=== PATIENT | female | born 1935 | race Two or more races ===

== ENCOUNTER 2020-07-01 16:46 | Inpatient (IN) | payer OTHER ==
[~2020-07-01] VITALS: Ht 154.9 cm; Wt 68.0 kg
[2020-07-01] MEDS ORDERED: PANTOPRAZOLE 40 MG VIAL IV ONE (17:30)
--- NOTE | 2020-07-01 17:32 | NUR ---
[id number] home c/o generalized body weakness. hemoglobin of 5.9. PT AAOX4, VSS. RR EVEN & UNLABORED. DENIES CP, SOB, DIZZINESS, N/V AT THIS TIME. PT SEEN & EVAL'D BY DR. LE. PLACED ON ARTISTS' BOOKING REPRESENTATIVE, SR. WILL CONT TO MONITOR.
[2020-07-01 17:37] LABS: HEMATOCRIT 22 % (33-45); MEAN CORPUSCULAR HGB CONC 28 g/dl (31.0-36.0); MEAN CORPUSCULAR VOLUME 57 fL (82-100); PLATELET COUNT (AUTO) 391 /CMM (150-450); RED BLOOD CELL COUNT(AUTO) 3.81 MIL/uL (4.0-5.2); WHITE BLOOD COUNT (AUTO) 6.6 K/uL (4.3-11.0)
[2020-07-01] MEDS ORDERED: OLME20TA13 PO (17:43)
[2020-07-01] MEDS ORDERED: PANTOPRAZOLE 40 MG VIAL ONE (17:46)
--- NOTE | 2020-07-01 17:46 | NUR ---
family left contact # [phone]
[2020-07-01 17:47] LABS: CALCIUM, SERUM 8.9 mg/dL (8.5-10.1); CREATININE 1.2 mg/dL (0.6-1.3); POTASSIUM 4.5 mmol/L (3.5-5.1)
--- NOTE | 2020-07-01 17:53 | NUR ---
MEDICATED PER ERMD ORDER, PT NICKOLAS WELL.
[2020-07-01] MEDS ORDERED: CEFTRIAXONE 1 G in IV D5W 50 ML IV ONE (19:00)
[2020-07-01] MEDS ORDERED: AZITHROMYCIN 500 MG in IV D5W 250 ML IV ONE (19:00)
[2020-07-01] MEDS ORDERED: IOHEXOL-300 100 ML VIAL IV ONE (19:17)
[2020-07-01] MEDS ORDERED: IV NS 0.9% 250 ML IV ONE (19:17)
[2020-07-01] MEDS ORDERED: MAG HYDROX/AL HYDROX/SIMETH 30 ML UDC PO PRN (19:30)
[2020-07-01] MEDS ORDERED: ACETAMINOPHEN 325 MG TABLET PO PRN (19:30)
[2020-07-01] MEDS ORDERED: Z GUARD REMEDY 2 OZ OINT TP PRN (19:30)
[2020-07-01] MEDS ORDERED: ONDANSETRON HCL/PF 4 MG/2 ML VIAL IVP PRN (19:30)
[2020-07-01] MEDS ORDERED: MAGNESIUM HYDROXIDE 30 ML UDC PO PRN (19:30)
[2020-07-01] MEDS ORDERED: ZOLPIDEM TARTRATE 5 MG TABLET PO PRN (19:30)
--- NOTE | 2020-07-01 19:49 | NUR ---
PER LAB; PRBC READY
--- NOTE | 2020-07-01 20:14 | NUR ---
COVID SWAB SAMPLE COLLECTED AND SENT TO THE LAB.
[2020-07-01 20:18] LABS: EOSINOPHILS % (MANUAL) 1 % (0-4); LYMPHOCYTES % (MANUAL) 16 % (16-48); MONOCYTES % (MANUAL) 1 % (0-11.0); NEUTROPHILS % (MANUAL) 82 (42-76)
--- NOTE | 2020-07-01 21:30 | NUR ---
STARTED INFUSION OF 1 PACK OF RBC, PT NICKOLAS WELL. WILL CONT TO MONITOR FOR ANY SIDE EFFECTS OR ANY ALLERGIC RXN.
[2020-07-02] VITALS (12 sets, daily range): BP systolic 120–172; BP diastolic 57–105
--- NOTE | 2020-07-02 00:40 | NUR ---
REPORT GIVEN TO ED RN FOR HERNANDEZ.
--- NOTE | 2020-07-02 04:09 | NUR ---
RN notes Admitted an 84 year old female from ER via stretcher with slight shortness of breath. Respiration shallow and fast. Noted with non productive cough and slight elevated temperature of 99.3, complaining of severe wealmess. Alert and oriented x 4, verbally communicates needs. Noted to be very anxious and restless and very worried about her condition. Constant visual monitoring done. Started blood transfusion, no adverse effect noted. Endorsed to next shift for continuation of the blood transfusion and care. Vital signs WNL. Kept clean and dry.
[2020-07-02] MEDS: HYDROCODONE/APAP 5/325MG TABLET PO PRN (04:38)
--- NOTE | 2020-07-02 07:33 | NUR ---
PT IN BED, EYES OPEN , ALERT AND ORIENTED X 2. PT CURRENTLY ON 3L NC O2 SAT 95%. BLOOD TRANSFUSION STARTED PREVIOUS SHIFT STILL TRANSFUSING, NO ADVERSE REACTION. NO RESPIRATORY DISTRESS OR SOB AT THIS TIME. NO COUGH AT THIS TIME. BED IN LOCKED LOWEST POSITION, CALL LIGHT WITHIN REACH, ALL SAFETY MEASURES IN PLACE. WILL CONTINUE TO MONITOR CLOSELY.
--- NOTE | 2020-07-02 08:55 | NUR ---
1 UNIT PRBC TRANSFUSION COMPLETE
[2020-07-02 10:17] LABS: BASOPHILS # (AUTO) 0.1 /CMM (0.0-0.2); BASOPHILS % (AUTO) 0.5 % (0.0-2.0); EOSINOPHILS % (AUTO) 0.2 % (0.0-6.0); HEMATOCRIT 33 % (33-45); HEMOGLOBIN 9.9 g/dL (11.5-14.8); LYMPHOCYTES # (AUTO) 1.2 /CMM (0.8-4.8); LYMPHOCYTES % (AUTO) 9.3 % (20.0-44.0); MEAN CORPUSCULAR HGB CONC 30 g/dl (31.0-36.0); MEAN CORPUSCULAR VOLUME 66 fL (82-100); MONOCYTES # (AUTO) 0.7 /CMM (0.1-1.30); MONOCYTES % (AUTO) 5.8 % (2.0-12.0); NEUTROPHILS # (AUTO) 10.4 /CMM (1.8-8.9); NEUTROPHILS % (AUTO) 84.2 % (43.0-81.0); PLATELET COUNT (AUTO) 317 /CMM (150-450); RED BLOOD CELL COUNT(AUTO) 4.98 MIL/uL (4.0-5.2); WHITE BLOOD COUNT (AUTO) 12.4 K/uL (4.3-11.0)
[2020-07-02] MEDS: PANTOPRAZOLE 40 MG VIAL IV SCH (10:18)
[2020-07-02] MEDS: FUROSEMIDE 40 MG/4 ML VIAL IV SCH ×3 (10:18→18:27)
[2020-07-02 10:26] LABS: CALCIUM, SERUM 8.9 mg/dL (8.5-10.1); CREATININE 1.3 mg/dL (0.6-1.3); POTASSIUM 4.8 mmol/L (3.5-5.1)
[2020-07-02 10:32] LABS: ALBUMIN 3.4 g/dL (3.4-5.0); MAGNESIUM 2.2 mg/dL (1.8-2.4); PHOSPHORUS 4.3 mg/dL (2.5-4.9); TOTAL PROTEIN, SERUM 6.5 g/dL (6.4-8.2)
[2020-07-02 10:42] LABS: THYROID STIMULATING HORMONE 0.435 uIU/mL (0.358-3.74)
--- NOTE | 2020-07-02 12:00 | NUR ---
1ST DOSE LASIX GIVEN: 155/79, HR 83
--- NOTE | 2020-07-02 13:59 | NUR ---
2ND DOSE OF LASIX GIVEN, BP 138/58, HR 100
--- NOTE | 2020-07-02 15:00 | NUR ---
A-FIB 100-130S SHOWN ON MONITOR, MD JONES MADE AWARE. METOPROLOL ORDERED
[2020-07-02] MEDS ORDERED: METOPROLOL TARTRATE 25 MG TABLET PO SCH (15:30)
--- NOTE | 2020-07-02 17:00 | NUR ---
PT TRANSFERRED TO [facility]
--- NOTE | 2020-07-02 19:40 | NUR ---
RN NOTE RECEIVED PT AWAKE AND ALERT/ORIENTED X 2 WITH PERIODS OF FORGETFULNESS. PT IN BED IN SEMI SUTTON'S POSITION. PT ON 3L OF O2 VIA NC AND TOLERATING WELL. RESPIRATIONS EVEN AND UNLABORED. DENIES PAIN OR DISCOMFORT. PT ASSISTED TO BEDSIDE COMMODE. CURRENTLY SR O THE RETORT ENGINEER WITH OCCASIONAL PVCS. IV LINES FLUSHED AND PATENT WITHOUT COMPLICATIONS NOTED AT SITES. BLE EDEMA NOTED. KEPT ELEVATED. REORIENTATION PROVIDED PRN, PLAN OF CARE DISCUSSED, CALL LIGHT WITHIN REACH, SAFETY MEASURES IN PLACE, BED ALARM ON, BED LOCKED AND IN LOWEST POSITION, WILL MONITOR PATIENT,
--- NOTE | 2020-07-02 19:43 | NUR ---
PT IN BED, EYES OPEN ALERT AND ORIENTED X 2-3. PT ON 3L O2 SATURATION 94-100%. PT ON 4 L THIS SHIFT, AND DISPLAYS NO SOB ON RA. NO RESPIRATORY DISTRESS OR SOB. PT STATES THAT LASIX HAS IMPROVED HER BREATHING THROUGHOUT SHIFT. PT IV R/L HAND #20G ACCESS REMAINS INTACT, SALINE LOCKED NO SIGNS OF INFECTION OR INFILTRATION. PT NOW ON REGULAR DIET, ADVANCED FROM NPO STATUS. PT IN BED LOCKED LOWEST POSITION. CALL LIGHT WITHIN REACH. ALL SAFETY MEASURES IN PLACE. REPORT GIVEN TO CONRAD FOR HERNANDEZ
[2020-07-03] VITALS: BP 133/55
[2020-07-03 04:00] VITALS: BP 123/46
[2020-07-03 06:17] LABS: BASOPHILS # (AUTO) 0.1 /CMM (0.0-0.2); BASOPHILS % (AUTO) 0.9 % (0.0-2.0); EOSINOPHILS % (AUTO) 0.7 % (0.0-6.0); HEMATOCRIT 34 % (33-45); HEMOGLOBIN 9.9 g/dL (11.5-14.8); LYMPHOCYTES # (AUTO) 1.5 /CMM (0.8-4.8); LYMPHOCYTES % (AUTO) 15.7 % (20.0-44.0); MEAN CORPUSCULAR HGB CONC 30 g/dl (31.0-36.0); MEAN CORPUSCULAR VOLUME 68 fL (82-100); MONOCYTES # (AUTO) 0.9 /CMM (0.1-1.30); MONOCYTES % (AUTO) 9.7 % (2.0-12.0); NEUTROPHILS # (AUTO) 6.8 /CMM (1.8-8.9); PLATELET COUNT (AUTO) 299 /CMM (150-450); RED BLOOD CELL COUNT(AUTO) 4.93 MIL/uL (4.0-5.2); WHITE BLOOD COUNT (AUTO) 9.3 K/uL (4.3-11.0)
[2020-07-03 06:39] LABS: ALANINE AMINOTRANSFERASE 25 U/L (12-78); ALBUMIN 3.2 g/dL (3.4-5.0); ALKALINE PHOSPHATASE 69 U/L (46-116); ASPARTATE AMINOTRANSFERASE 25 U/L (15-37); BILIRUBIN,TOTAL 0.6 mg/dL (0.2-1.0); CALCIUM, SERUM 8.8 mg/dL (8.5-10.1); CARBON DIOXIDE 24 mmol/L (21-32); CHLORIDE 107 mmol/L (98-107); CREATININE 1.5 mg/dL (0.6-1.3); GLUCOSE 126 mg/dL (74-106); MAGNESIUM 2.2 mg/dL (1.8-2.4); PHOSPHORUS 4.3 mg/dL (2.5-4.9); POTASSIUM 4.2 mmol/L (3.5-5.1); SODIUM SERUM 140 mmol/L (136-145); TOTAL PROTEIN, SERUM 6.2 g/dL (6.4-8.2); UREA NITROGEN, BLOOD 32 mg/dL (7-18)
--- NOTE | 2020-07-03 06:48 | NUR ---
RN NOTE CLARIFICATION OF ORDER: REGULAR DIET.
--- NOTE | 2020-07-03 06:58 | NUR ---
RN NOTE NO ACUTE CHANGES OBSERVED OVERNIGHT. PT AWAKE AND ALERT/ORIENTED X 3 IN BED WITH PERIODS OF FORGETFULNESS. REORIENTATION PROVED PRN . PT REFUSING O2 AT THIS TIME. RESPIRATIONS EVEN AND UNLABORED. ABLE TO USE BEDSIDE COMMODE WITH STANDBY ASSIST. IV LINES FLUSHED AND PATENT WITHOUT COMPLICATIONS NOTED AT SITES. STILL NEED TO COLLECT STOOL FOR OB. PT AWARE. ALL NEEDS MET AND ATTENDED TO, CALL LIGHT WITHIN REACH, SAFETY MEASURES IN PLACE, TO COMPLETE MED RECON. WILL ENDORSE TO MORNING RN FOR FOLLOW UP
[2020-07-03 08:00] VITALS: BP 98/44
--- NOTE | 2020-07-03 08:00 | NUR ---
RN OPENING NOTE: RECEIVED PATIENT IN BED THIS MORNING. PATIENT IS AAOX3 WITH EPISODES OF CONFUSION. SR IN THE 70S WITH PVCS NOTED ON THE TELE MONITOR. SATING WELL ON O2 3L/MIN VIA NC. NO SIGNS OF ACUTE DISTRESS NOTED AT THIS TIME. SKIN INTACT. PATIENT IS NPO AT THIS TIME D/T CT SCAN. #20 L/R HAND, C/D/I, FLUSHES WELL, NO SIGS OF COMPLICATIONS NOTED. SAFETY MEASURES IMPLEMENTED, BED IN LOWEST POSITION, LOCKED, SIDE RAILS UP, CALL LIGHT WITHIN REACH. WILL CONTINUE TO MONITOR PATIENT FOR CHANGES.
[2020-07-03] MEDS: PANTOPRAZOLE 40 MG VIAL IV SCH (08:48)
[2020-07-03] MEDS ORDERED: IOHEXOL-300 100 ML VIAL IV ONE (08:54)
[2020-07-03] MEDS ORDERED: IV NS 0.9% 250 ML IV ONE (08:55)
[2020-07-03] MEDS ORDERED: CT SWABBABLE VALVE TRANS SET 1 EA INFUS.SET MC ONE (08:55)
[2020-07-03] MEDS: VALSARTAN 80 MG TABLET PO SCH (11:01)
[2020-07-03] MEDS: METOPROLOL TARTRATE 25 MG TABLET PO SCH ×2 (11:01→21:00)
--- NOTE | 2020-07-03 11:11 | NUR ---
PATIENT BACK FROM CT, DIET RESUMED PER DR JONES
[2020-07-03] MEDS: HYDROCODONE/APAP 5/325MG TABLET PO PRN (13:06)
--- NOTE | 2020-07-03 13:35 | NUR ---
PATIENT REFUSED BIOPSY FOR 07/04/2020. EDUCATED THE IMPORTANCE OF A BIOPSY BUT PATIENT CONTINUES TO REFUSE. STATES THAT SHE WANTS TO GET A SECOND OPINION AND WILL THINK ABOUT IT. INFORMED DR JONES OF PATIENT'S WISHES.
--- NOTE | 2020-07-03 13:54 | NUR ---
GAVE DAUGHTER, CALLUM SUTTON
[2020-07-03 16:00] VITALS: BP 98/69
--- NOTE | 2020-07-03 18:19 | NUR ---
BOTH PATIENT'S IVS BECAME INFILTRATED EARLIER TODAY. ONE INFILTRATION ON RIGHT ARM WAS POST CONTRAST. PATIENT'S RIGHT ARM IS NOW SWOLLEN. CAP REFILL <3 SECONDS. PATIENT ABLE TO MOVE FINGERS AND ARM. SENSATION STILL THERE, NO C/O TINGLING AT THIS TIME. WILL CONTINUE TO MONITOR PATIENT.
--- NOTE | 2020-07-03 18:58 | NUR ---
RN CLOSING NOTE: PATIENT REMAINS IN BED. NO SIGNS OF ACUTE DISTRESS NOTED AT THIS TIME. WILL ENDORSE TO MONITOR RIGHT ARM INFILTRATION. SAFETY MEASURES IMPLEMENTED, BED IN LOWEST POSITION, LOCKED, SIDE RAILS UP, CALL LIGHT WITHIN REACH. ENDORSED TO IMELDA RUIZ FOR CONTINUITY OF CARE.
--- NOTE | 2020-07-03 19:15 | NUR ---
RN OPENING NOTE RECEIVED PATIENT IN BED ALERT ORIENTED X3 VERBALLY RESPONSIVE ON 3L OXYGEN VIA NASAL CANNULA,O2:95% NO SOB NOT ACUTE DISTRESS NOTED RIGHT HAND SWELLING ELEVATED NO IV ACCESS,AMBULATORY WITH ASSIST CONTINENT TO BOWEL/BLADDER,KEEP BED IN LOW POSITION,AND LOCKED,CALL LIGHT WITHIN REACH,SAFETY MEASURE IMPLEMENT,CONTINUE TO MONITOR.
--- NOTE | 2020-07-03 19:16 | NUR ---
RN NOTE APPLIED ICE PACK ON RIGHT HAND FOR SWELLING CONTINUE TO MONITOR.
[2020-07-03 20:00] VITALS: BP 103/58
--- NOTE | 2020-07-03 21:25 | NUR ---
RN NOTE LOPRESSOR 25MG NOT GIVEN DUE TO SBP 102 CONTINUE TO MONITOR.
--- NOTE | 2020-07-03 22:34 | NUR ---
RN CLOSING NOTE PATIENT REMAINS IN STABLE CONDITION ,NO SOB NOT ACUTE DISTRESS NOTED,ENDORSED TO RADHA SEGURA FOR CONTINUATION OF CARE.
--- NOTE | 2020-07-03 22:36 | NUR ---
RN NOTES RECEIVED REPORT FROM SARA SEGURA. PATIENT IN BED SLEEPING. NO SOB OR ANY S/S OF DISTRESS. CALL LIGHT WITHIN REACH. WILL CONTINUE TO MONITOR.
[2020-07-04 04:00] VITALS: BP 129/45
[2020-07-04 06:08] LABS: CALCIUM, SERUM 8.7 mg/dL (8.5-10.1); CARBON DIOXIDE 26 mmol/L (21-32); CHLORIDE 105 mmol/L (98-107); CREATININE 1.5 mg/dL (0.6-1.3); GLUCOSE 131 mg/dL (74-106); MAGNESIUM 2.1 mg/dL (1.8-2.4); PHOSPHORUS 3.8 mg/dL (2.5-4.9); SODIUM SERUM 138 mmol/L (136-145); UREA NITROGEN, BLOOD 41 mg/dL (7-18)
[2020-07-04 06:11] LABS: BASOPHILS # (AUTO) 0.1 /CMM (0.0-0.2); BASOPHILS % (AUTO) 0.9 % (0.0-2.0); EOSINOPHILS % (AUTO) 3.3 % (0.0-6.0); HEMATOCRIT 32 % (33-45); HEMOGLOBIN 9.6 g/dL (11.5-14.8); LYMPHOCYTES # (AUTO) 1.8 /CMM (0.8-4.8); LYMPHOCYTES % (AUTO) 16.4 % (20.0-44.0); MEAN CORPUSCULAR HGB CONC 30 g/dl (31.0-36.0); MEAN CORPUSCULAR VOLUME 66 fL (82-100); MONOCYTES % (AUTO) 9.6 % (2.0-12.0); NEUTROPHILS # (AUTO) 7.5 /CMM (1.8-8.9); NEUTROPHILS % (AUTO) 69.8 % (43.0-81.0); PLATELET COUNT (AUTO) 280 /CMM (150-450); RED BLOOD CELL COUNT(AUTO) 4.81 MIL/uL (4.0-5.2); WHITE BLOOD COUNT (AUTO) 10.8 K/uL (4.3-11.0)
--- NOTE | 2020-07-04 06:44 | NUR ---
RN CLOSING NOTE, PATIENT IN BED ASLEEP AT THIS TIME, BUT AROUSES TO VERBAL STIMULI, BREATHING EVEN AND UNLABORED, AT 2LPM VIA NC WITH OPTIMAL O2 SAT LEVEL, NO SOB/SIGNS OF ACUTE DISTRESS NOTED THROUGHOUT THE NIGHT, NO IV ACCESS, RIGHT ARM ELEVATED TO DECREASE SWELLING, NO SIGNIFICANT CHANGE IN CONDITION, THROUGHOUT THE NIGHT, BED IN LOWEST POSITION, LOCKED SIDE RAILS UP, CALL LIGHT WITHIN REACH, WILL ENDORSED TO ONCOMING NURSE FOR CONTINUITY OF CARE
[2020-07-04] MEDS ORDERED: PANTOPRAZOLE 40 MG TABLET.DR PO SCH (07:30)
--- NOTE | 2020-07-04 07:35 | NUR ---
PER RN PATIENT IS REFUSING THE PROCEDURE AT THIS MOMENT, ORDERING MD IS AWARE
--- NOTE | 2020-07-04 08:00 | NUR ---
RN OPENING NOTE RECEIVED PATIENT IN BED ALERT ORIENTED X3 VERBALLY RESPONSIVE AND FORGETFUL SOMETIMES .ON 3L OXYGEN VIA NASAL CANNULA,O2:95% NO SOB NOT ACUTE DISTRESS NOTED. RIGHT HAND SWELLING ELEVATED NO IV ACCESS,AMBULATORY WITH ASSIST CONTINENT TO BOWEL/BLADDER, SAFETY MESSUREMENTS ARE IMPLEMENTED PER HOSPITAL POLICY. KEEP BED IS IN LOWEST POSITION,AND LOCKED,CALL LIGHT WITHIN REACH. WILL CONTINUE TO MONITOR.
[2020-07-04] MEDS: METOPROLOL TARTRATE 25 MG TABLET PO SCH (09:06)
[2020-07-04] MEDS: VALSARTAN 80 MG TABLET PO SCH (09:06)
--- NOTE | 2020-07-04 10:15 | NUR ---
RN NOTES PT IS COMPLAINING OF ITCHINESS INFORMED DR JONES
--- NOTE | 2020-07-04 10:21 | NUR ---
RN NOTES DR ORDERED BANADRYL 25 MG TABLET
[2020-07-04] MEDS ORDERED: diphenhydrAMINE HCL 25 MG CAPSULE PO PRN (10:30)
--- NOTE | 2020-07-04 10:49 | NUR ---
RN NOTES GOING TO ADMINISTER THE BENADRYL
--- NOTE | 2020-07-04 11:30 | NUR ---
RN NOTES PT IS SAYING FEELING LESS ITCHINESS
[2020-07-04 12:00] VITALS: BP 128/74
[2020-07-04] MEDS ORDERED: METO25TA20 PO (12:55)
--- NOTE | 2020-07-04 13:06 | NUR ---
RN NOTES NOTED DC ORDER
--- NOTE | 2020-07-04 16:00 | NUR ---
RN NOTES PT IS IN STABLE CONDITION TO DC. PT VS WNL. YANDEL AND GRANDSON PICKED UP THE PATIENT TO TAKE HER HOME. GAVE HER DR SARAH MENEZES DC INSTRUCTION AND WHEELED HER DOWN AND PUT HER IN THE CAR
== END 2020-07-04 15:50 | disposition home or self-care (01) | DRG 377 ==
LOC: ER 17:49 → ICU 22:33 → TELE1 07-02 17:10 → MEDSG1 07-03 09:10
PROVIDERS: ADMIT Student in an Organized Health Care Education/Training Program; ATTEND Student in an Organized Health Care Education/Training Program
PROC: 30233N1 Transfusion of Nonautologous Red Blood Cells into Peripheral Vein, Percutaneous Approach (ICD-10-PCS; principal; 2020-07-01)
DX: K92.2 Gastrointestinal hemorrhage, unspecified (principal); I21.A1 Myocardial infarction type 2; N17.0 Acute kidney failure with tubular necrosis; I13.0 Hypertensive heart and chronic kidney disease with heart failure and stage 1 through stage 4 chronic kidney disease, or unspecified chronic kidney disease; I31.3 Pericardial effusion (noninflammatory); D72.829 Elevated white blood cell count, unspecified; I50.9 Heart failure, unspecified; K44.9 Diaphragmatic hernia without obstruction or gangrene; D50.9 Iron deficiency anemia, unspecified; I25.10 Atherosclerotic heart disease of native coronary artery without angina pectoris; N18.9 Chronic kidney disease, unspecified; M19.90 Unspecified osteoarthritis, unspecified site; R51.9 Headache, unspecified; Z79.1 Long term (current) use of non-steroidal anti-inflammatories (NSAID); Z87.891 Personal history of nicotine dependence; E04.9 Nontoxic goiter, unspecified; T39.395A Adverse effect of other nonsteroidal anti-inflammatory drugs [NSAID], initial encounter; Y92.009 Unspecified place in unspecified non-institutional (private) residence as the place of occurrence of the external cause; I70.0 Atherosclerosis of aorta; I27.20 Pulmonary hypertension, unspecified
CPT/HCPCS: 36415; 71045-TC; 71260-TC; 76536-TC; 80048-TC; 80053-TC; 80061-TC; 82378; 82728-TC; 83540-TC; 83735-TC; 84100-TC; 84439-TC; 84443-TC; 84484-TC; 85025-TC; 85610-TC; 85652-TC; 85730-TC; 86800; 86850-TC; 87040-TC; 87081-TC; 93307-TC; 93970-TC; 93971-TC; C9113; G0378; J0696; J1940; J2405; J7050; J7060; P9016-BL; Q0163; Q9967; U0003

== ENCOUNTER 2021-06-30 17:54 | Inpatient (IN) | payer BC, OTHER ==
[~2021-06-30] VITALS: Ht 160 cm; Wt 67.1 kg
[~2021-06-30 17:54] MED LIST: METO25TA20 PO; OLME20TA13 PO
[2021-06-30 19:06] LABS: BASOPHILS % (AUTO) 0.3 % (0.0-2.0); EOSINOPHILS % (AUTO) 0.4 % (0.0-6.0); HEMATOCRIT 36 % (33-45); HEMOGLOBIN 10.5 g/dL (11.5-14.8); LYMPHOCYTES # (AUTO) 0.9 K/uL (0.8-4.8); LYMPHOCYTES % (AUTO) 8.4 % (20.0-44.0); MEAN CORPUSCULAR HGB CONC 30 g/dl (31.0-36.0); MEAN CORPUSCULAR VOLUME 74 fL (82-100); MONOCYTES # (AUTO) 0.5 K/uL (0.1-1.30); MONOCYTES % (AUTO) 4.3 % (2.0-12.0); NEUTROPHILS # (AUTO) 9.6 K/uL (1.8-8.9); NEUTROPHILS % (AUTO) 86.6 % (43.0-81.0); PLATELET COUNT (AUTO) 316 K/uL (150-450); RED BLOOD CELL COUNT(AUTO) 4.79 MIL/uL (4.0-5.2); WHITE BLOOD COUNT (AUTO) 11.1 K/uL (4.3-11.0)
[2021-06-30 19:57] LABS: CALCIUM, SERUM 9.1 mg/dL (8.5-10.1); POTASSIUM 4.5 mmol/L (3.5-5.1)
--- NOTE | 2021-06-30 20:19 | NUR ---
BIBRA C/O BILATERAL LOWER EXTREMITY PAIN RELATED TO RA WELL ACUTE WEAKNESS. PER PATIENT SHE HAS CHRONIC PAIN THAT WORSTENED AND MADE HER INABL;E TO WALK WHILE AT HOME, LEAVING HER ON THE GROUND FOR 8 HOURS. PT VITALS STABLE AND IS ON THE MONITOR BREATHING EVEN AND UNLABORED.
[2021-06-30] MEDS ORDERED: CEPHALEXIN MONOHYDRATE 500 MG CAPSULE PO ONE ×2 (20:59→21:00)
[2021-06-30] MEDS ORDERED: ASPIRIN 81 MG TAB.CHEW ONE (20:59)
[2021-06-30] MEDS ORDERED: ASPIRIN 81 MG TAB.CHEW PO ONE (21:00)
[2021-06-30 21:01] LABS: LYMPHOCYTES % (MANUAL) 8 % (16-48); MONOCYTES % (MANUAL) 2 % (0-11.0); NEUTROPHILS % (MANUAL) 90 (42-76)
[2021-06-30 21:16] LABS: BILIRUBIN,URINE NEGATIVE (NEGATIVE); COLOR,URINE YELLOW (YELLOW); LEUKOCYTE ESTERASE ,URINE NEGATIVE (NEGATIVE); NITRITE, URINE NEGATIVE (NEGATIVE); PH,URINE 6.5 (5.0-8.0); PROTEIN,URINE 30 mg/dl (NEGATIVE); UGLUCOSE NEGATIVE (NEGATIVE); UROBILINOGEN,URINE 0.2 EU/dL (0.2)
[2021-06-30 21:25] LABS: BACTERIA,URINE None seen /HPF (None Seen); MUCUS,URINE Few /LPF (None Seen); SQUAMOUS EPITHELIAL CELL,UR 0-2 /HPF (None Seen); WBC,URINE 0-2 /HPF (0-3)
[2021-07-01] VITALS: BP 130/61
--- NOTE | 2021-07-01 00:06 | NUR ---
REPORT GIVEN TO IGNACIO
--- NOTE | 2021-07-01 00:09 | NUR ---
RN NOTES: RECEIVED ENDORSEMENT FROM RUTH/RN/ER AT 0000.
--- NOTE | 2021-07-01 00:16 | NUR ---
PT TRANSPORTED TO [facility] ON MONITOR PER ACLS PROTOCOL WITHOUT INCIDENT. ALL V/S STABLE AT TRANSPORT.
[2021-07-01] MEDS ORDERED: Z GUARD REMEDY 2 OZ OINT TP PRN (00:30)
[2021-07-01] MEDS ORDERED: ZOLPIDEM TARTRATE 5 MG TABLET PO PRN (00:30)
[2021-07-01] MEDS ORDERED: MAG HYDROX/AL HYDROX/SIMETH 30 ML UDC PO PRN (00:30)
[2021-07-01] MEDS ORDERED: ONDANSETRON HCL/PF 4 MG/2 ML VIAL IVP PRN (00:30)
[2021-07-01] MEDS ORDERED: MAGNESIUM HYDROXIDE 30 ML UDC PO PRN (00:30)
[2021-07-01] MEDS ORDERED: ACETAMINOPHEN 325 MG TABLET PO PRN (00:30)
[2021-07-01 01:00] VITALS: BP 130/61
--- NOTE | 2021-07-01 02:00 | NUR ---
RN NOTES: NEW ADMISSION FROM ER, 85 Y.O.,FEMALE, A/OX3-4, BROUGHT IN BY AMBULANCE FROM HOME, PER ENDORSEMENT PATIENT DENIED OF HAVING FALL, PER DAUGHTER SHE HAD A FALL, SHE WAS FOUND ON THE FLOOR. SINCE MORNING TIME SHE HAS CHRONIC BILATERAL KNEE PAIN SECONDARY TO RA, UNABLE TO GET UP,DX:NSTEMI, ACUTE WEAKNESS AND ACUTE CORONARY SYNDROME, ALSO KNOWN CASE HTN,CHF, CORONARY ARTERY DISEASE WITH INCREASE TROPONIN 0.358 SHE CALLED HER CAREGIVER AND AGREE TO GO TO HOSPITAL. -IN ER DOPPLER ON BLE DONE, IV CANNULA INSERTED ON THE LH G#22, SHE RECEIVED KEFLEX 500 MG,ASA 162MG, NO IVF, MRSA SWAB DONE,COVID VACCINE NOT YET TAKEN DUE TO HER CONDITION(SHE HAS REDNESS/SPOT ON BUE) HER PRIMARY DOCTOR DID NOT ALLOW HER TO GET ANY VACCINE. OFFERED FLU AND PNA VACCINE SHE SAID "NO NOT NOW UTIL I AM CLEARED BY MY PRIMARY DOCTOR".MED RECON NOT YET DONE. PER PATIENT THEY WILL GIVE THE LIST OF HER MEDICATION LATER IN THE MORNING.
--- NOTE | 2021-07-01 02:05 | NUR ---
RN NOTES: -ON ROOM AIR, NO SOB , NO SOB, ONLY MILD PAIN IN BLE 10/26, PER PATIENT TYLENOL CAN HELP AND SHE TOOK ALREADY FROM HOME. -ORIENTED TO UNIT AND STAFF, FALL,SAFETY AND ASPIRATION PRECAUTION OBSERVED. BODY ASSESSMENT DONE: 1)MULTIPLE SKIN DISCOLORATION /RED RASHES/RED SPOTS ON LEFT UPPER EXTREMITY 2)MULTIPLE SKIN DISCOLORATION ON THE RIGHT UPPER EXTREMITY 3)SKIN DISCOLORATION AND NEEDLE PRICK ON THE LEFT HAND 4)UMBILICAL HERNIA 5)LEFT FOOT BUNION LATERAL ON THE FIRST AND LAST DIGIT WITH BLANCHABLE REDNESS 6)LEFT FOOT OLD WOUND/CLOSED/WITH SCAB AND SKIN PEELING 7) EDEMA ON RIGHT LOWER EXTREMITY (+) LEFT LOWER EXTREMITY (+++) -KEPT BOTH FOOT ELEVATED
[2021-07-01 04:00] VITALS: BP 145/71
--- NOTE | 2021-07-01 05:33 | NUR ---
RN NOTES: ABLE TO SLEEP AND REST, ON CIGARETTE SELLER REMAINS ON SR WITH PAC RATE 80'S. NO CHEST PAIN, SHE HAS PAIN ON BILATERAL KNEES UPON MOVEMENT,NEEDS ATTENDED.
--- NOTE | 2021-07-01 05:34 | NUR ---
RN NOTES: ADDITIONAL NOTE TO 0100-AFTER DOING BODY ASSESSMENT WHILE COTTON PICKER IS CHECKING HER BELONGINGS SHE VERBALIZED "I LOSS MY RED CREDIT CARD,ITS A MASTERCARD", IMMEDIATELY RN CALLED ER AND SPOKE WITH RUTH NOTIFIED AND REQUESTED TO CHECK IF PATIENT LEFT ANYTHING THERE, THEY WILL LET US KNOW IN CASE ANYBODY FOUND A CARD.
--- NOTE | 2021-07-01 06:00 | NUR ---
RN NOTES: --3 HOME MEDS OF PATIENT(PROPANOLOL, VIT D2, BLOOD BUILDER-SUPPLEMENT) SEND TO PHARMACY WITH PATIENTS PERMISSION. Addendum: 07/01/21 at 0603 by BEN BO RN ADDED NOTES: --RETURN SLIP ATTACHED TO PATIENT CHART WITH SERIAL NO: [id number]
--- NOTE | 2021-07-01 06:50 | NUR ---
RN NOTES: ECHO DONE, NO CHEST PAIN, SHE ONLY FEEL PAIN DURING REPOSITIONING AND GETTING UP FROM BED, ON CLOSE WATCH, ENDORSED FOR THE CONTINUITY OF CARE. TO F/U MED RECON. Addendum: 07/01/21 at 0654 by BEN BO RN ADDED NOTES: -NO SHORTENING, NO INTERNAL OR EXTERNAL ROTATION ON BOTH LOWER EXTREMITIES.
--- NOTE | 2021-07-01 07:36 | NUR ---
CHEMISTRY MANAGER OPENING NOTES RECEIVED PATIENT IN BED, ASLEEP. PATIENT ON ROOM AIR; BREATHING EVEN AND UNLABORED, NO SOB NOTED. TELE [id number] WITH A CURRENT READING OF SR 64 BPM. NO S/S OF PAIN SUCH FACIAL GRIMACING, MOANING OR GUARDING NOTED. LEFT HAND IV ACCESS PRESENT AND INTACT; SL. SAFETY PRECAUTIONS IN PLACE; BED IN LOW POSITION AND LOCKED, RAILS UP X2, CALL LIGHT WITHIN REACH. WILL CONTINUE TO MONITOR PATIENT.
[2021-07-01 08:00] VITALS: BP 149/66
[2021-07-01] MEDS: PANTOPRAZOLE 40 MG TABLET.DR PO SCH (08:42)
[2021-07-01] MEDS: ASPIRIN 81 MG TAB.CHEW PO SCH (08:42)
[2021-07-01] MEDS: ENOXAPARIN SODIUM 40 MG/0.4 ML DISP.SYRIN SQ SCH (08:44)
[2021-07-01] MEDS: LOSARTAN POTASSIUM 50 MG TABLET PO SCH (09:00)
[2021-07-01] MEDS: METOPROLOL TARTRATE 25 MG TABLET PO SCH ×2 (09:48→22:05)
[2021-07-01 11:00] LABS: BASOPHILS % (AUTO) 0.5 % (0.0-2.0); EOSINOPHILS % (AUTO) 2.8 % (0.0-6.0); HEMATOCRIT 31 % (33-45); HEMOGLOBIN 9.4 g/dL (11.5-14.8); LYMPHOCYTES # (AUTO) 1.1 K/uL (0.8-4.8); LYMPHOCYTES % (AUTO) 14.1 % (20.0-44.0); MEAN CORPUSCULAR HGB CONC 31 g/dl (31.0-36.0); MEAN CORPUSCULAR VOLUME 72 fL (82-100); MONOCYTES # (AUTO) 0.7 K/uL (0.1-1.30); MONOCYTES % (AUTO) 8.4 % (2.0-12.0); NEUTROPHILS # (AUTO) 5.7 K/uL (1.8-8.9); NEUTROPHILS % (AUTO) 74.2 % (43.0-81.0); PLATELET COUNT (AUTO) 300 K/uL (150-450); RED BLOOD CELL COUNT(AUTO) 4.28 MIL/uL (4.0-5.2); WHITE BLOOD COUNT (AUTO) 7.7 K/uL (4.3-11.0)
[2021-07-01 11:40] LABS: EOSINOPHILS % (MANUAL) 2 % (0-4); LYMPHOCYTES % (MANUAL) 14 % (16-48); MONOCYTES % (MANUAL) 4 % (0-11.0); NEUTROPHILS % (MANUAL) 80 (42-76)
[2021-07-01 12:03] LABS: ALBUMIN 2.7 g/dL (3.4-5.0); BILIRUBIN,TOTAL 0.3 mg/dL (0.2-1.0); CALCIUM, SERUM 8.7 mg/dL (8.5-10.1); CREATININE 1.1 mg/dL (0.6-1.3); PHOSPHORUS 3.6 mg/dL (2.5-4.9); TOTAL PROTEIN, SERUM 5.9 g/dL (6.4-8.2)
[2021-07-01 12:43] LABS: THYROID STIMULATING HORMONE 1.444 uIU/mL (0.358-3.74)
--- NOTE | 2021-07-01 13:11 | NUR ---
PRESIDENT [place] NOTES PATIENT COMPLAINING OF NAUSEA; REQUSTING MEDICATION. PRN ZOFRAN ADMINISTERED. WILL REASSESS.
[2021-07-01 16:00] VITALS: BP 120/77
--- NOTE | 2021-07-01 17:00 | NUR ---
CORPORATE LEGAL MANAGER NOTES PATINT NOTED WITH DECREASED O2 SATURATION 83-86% GOING UP TP 90% THEN DROPPING BACK TO 80S. PER PATIENT SHE IS SLIGHTLY SOB BUT OTHERWISE FEELS OK. O2 SUPPLEMENTATION STARTED AT 2 LPM VIA NASAL CANNULA. PATIENT SATURATING 96-100%
--- NOTE | 2021-07-01 18:49 | NUR ---
MARKETING COMMUNICATIONS ASSISTANT CLOSING NOTES PATIENT JUAN JOSE IN BED, ASLEEP. PATIENT ON OXYGEN THERAPY AT 2 LPM VIA NASAL CANNULA SAT 96-100%; BREATHING EVEN AND UNLABORED, NO SOB NOTED. TELE [id number] WITH A CURRENT READING OF SR 60s WITH PACs. MILD BLE PAIN BUT NO MEDICATION REQUESTED. LEFT HAND IV ACCESS PRESENT AND INTACT; SL. ALL NEEDS ATTENDED DURING THE DAY. SAFETY PRECAUTIONS IN PLACE; BED IN LOW POSITION AND LOCKED, RAILS UP X2, CALL LIGHT WITHIN REACH. WILL ENDORSE TO INDUSTRIAL ENG NURSE FOR HERNANDEZ.
--- NOTE | 2021-07-01 19:30 | NUR ---
SIGN BOARD ERECTOR OPENING NOTES RECEIVED PATIENT IN BED, ASLEEP. PATIENT ON OXYGEN THERAPY AT 2 LPM VIA NASAL CANNULA BREATHING EVEN AND UNLABORED, NO SOB NOTED AT THIS TIME. TELE [id number] WITH A CURRENT READING OF NSR WITH HR =68 . LEFT HAND IV SALINE LOCKED G=22 PRESENT AND INTACT. ALL NEEDS ATTENDED. SAFETY PRECAUTIONS IN PLACE; BED IN LOW POSITION AND LOCKED, RAILS UP X2, CALL LIGHT WITHIN REACH. WILL CONTINUE TO MONITOR PATIENT ACCORDINGLY.
[2021-07-01 20:00] VITALS: BP 137/53
--- NOTE | 2021-07-01 23:30 | NUR ---
RN NOTES Patient accidentally pulled out her IV line but refused to have another one at this time, patient stated "she want to have it in the morning"
[2021-07-02] VITALS: BP 146/66
--- NOTE | 2021-07-02 06:26 | NUR ---
STAFF OCCUPATIONAL THERAPIST CLOSING NOTES PATIENT IN BED, ASLEEP. PATIENT ON OXYGEN THERAPY AT 2 LPM VIA NASAL CANNULA BREATHING EVEN AND UNLABORED, NO SOB NOTED AT THIS TIME. TELE [id number] WITH A CURRENT READING OF NSR WITH HR =68 . ALL NEEDS ATTENDED. SAFETY PRECAUTIONS IN PLACE; BED IN LOW POSITION AND LOCKED, RAILS UP X2, CALL LIGHT WITHIN REACH. WILL ENDORSED PATIENT TO DAY SHIFT NURSE FOR HERNANDEZ.
--- NOTE | 2021-07-02 06:29 | NUR ---
RN NOTES patient still refusing to have an IV access, explained the importance of having IV access but patient still refusing. Patient stated that "to comeback after breakfast," will endorse to incoming nurse
--- NOTE | 2021-07-02 07:30 | NUR ---
MEDICAL EDUCATION MANAGER OPENING NOTES RECEIVED PATIENT ON BED, AWAKE AND A/O X4. ON O2 AT 2LPM VIA NASAL CANNULA TOLERATING WELL. NO SOB NOTED. NOT IN DISTRESS. WITH NO COMPLAINTS OF PAIN OR DISCOMFORT AT THIS TIME. WITH NO IV ACCESS. PATIENT REFUSED FOR ANOTHER IV INSERTION. ENDORSED, IV WAS ACCIDENTALLY PULLED OUT BY PATIENT. SAFETY MEASURES IN PLACE. CALL LIGHT WITHIN REACH. BED ON LOWEST AND LOCKED POSITION, SIDE RAILS UP X2. WILL CONTINUE TO MONITOR.
--- NOTE | 2021-07-02 07:30 | NUR ---
GENERAL CAR SUPERVISOR YARD NOTE ON TELE MONITOR CURRENTLY READING SR AT 65BPM.
[2021-07-02 08:00] VITALS: BP 127/62
[2021-07-02] MEDS: PANTOPRAZOLE 40 MG TABLET.DR PO SCH (08:13)
[2021-07-02] MEDS: ASPIRIN 81 MG TAB.CHEW PO SCH (08:14)
[2021-07-02] MEDS: ENOXAPARIN SODIUM 40 MG/0.4 ML DISP.SYRIN SQ SCH (08:19)
[2021-07-02] MEDS: METOPROLOL TARTRATE 25 MG TABLET PO SCH (08:19)
[2021-07-02] MEDS: LOSARTAN POTASSIUM 50 MG TABLET PO SCH (08:19)
[2021-07-02] MEDS ORDERED: VALSARTAN 80 MG TABLET PO SCH (09:00)
[2021-07-02] MEDS ORDERED: SOD FERRIC GLUC 125 MG in IV NS 0.9% 100 ML IV SCH (14:00)
[2021-07-02 16:00] VITALS: BP 127/64
--- NOTE | 2021-07-02 17:55 | NUR ---
MONITOR TECHFRUIT PICKER NOTES PATIENT SEEN BY DR. MARIO AND ORDERED PATIENT FOR DISCHARGE TO HOME. PATIENT IS ALERT AND ORIENTED X4. DISCHARGE INSTRUCTION AND EDUCATION PROVIDED TO PATIENT AND EXPLAINED MEDICATIONS AND PRESCRIPTIONS. PATIENT VERBALIZED UNDERSTANDING. DISCHARGE FORM AND BELONGINGS LIST FORM SIGNED BY PATIENT. ALL BELONGINGS ARE ACCOUNTED FOR. NAME WRIST BAND REMOVED. PATIENT WAS ACCOMPANIED TO THE LOBBY IN STABLE CONDITION AMBULATORY WITH WALKER. PATIENT WAS PICKED UP BY DAUGHTER AND LEFT VIA PRIVATE CAR. MD AND CHARGE NURSE ARE AWARE OF THE DISCHARGE.
== END 2021-07-02 17:30 | disposition home or self-care (01) | DRG 282 ==
LOC: ER 18:16 → TELE 23:11
PROVIDERS: ADMIT Internal Medicine; ATTEND Internal Medicine
DX: I21.4 Non-ST elevation (NSTEMI) myocardial infarction (principal); D63.8 Anemia in other chronic diseases classified elsewhere; Z20.822 Contact with and (suspected) exposure to COVID-19; R53.1 Weakness; I10 Essential (primary) hypertension; I25.10 Atherosclerotic heart disease of native coronary artery without angina pectoris; M17.0 Bilateral primary osteoarthritis of knee; E04.1 Nontoxic single thyroid nodule; I27.20 Pulmonary hypertension, unspecified; R23.3 Spontaneous ecchymoses
CPT/HCPCS: 36415; 70450-TC; 71045-TC; 76536-TC; 80048-TC; 80053-TC; 80061-TC; 81001; 82728-TC; 82962-TC; 83540-TC; 83605-TC; 83735-TC; 84100-TC; 84439-TC; 84443-TC; 84484-TC; 85025-TC; 85730-TC; 87081-TC; 93307-TC; 93971-TC; 97116-TC; 97530-TC; C9803; G0378; J1650; J2405; J2916; J7030

== ENCOUNTER 2021-11-15 09:01 | Emergency (ER) | payer OTHER ==
[~2021-11-15] VITALS: Ht 152.4 cm; Wt 70.8 kg
--- NOTE | 2021-11-15 09:10 | NUR ---
[id number] home, weak slid off her walker sometime last night unable to get up. C/O GENERALIZED WEAKNESS. AAOX4 NOT IN DISTRESS NOT IN PAIN. MD AT THE BED SIDE.
[2021-11-15] MEDS ORDERED: IV LR 500 ML IV ONE (09:30)
--- NOTE | 2021-11-15 09:45 | NUR ---
BLOOD DRAWN AND SENT TO LAB.
--- NOTE | 2021-11-15 09:50 | NUR ---
X-RAY TECH. AT BED SIDE
[2021-11-15 09:56] LABS: BASOPHILS # (AUTO) 0.1 K/uL (0.0-0.2); BASOPHILS % (AUTO) 0.6 % (0.0-2.0); EOSINOPHILS % (AUTO) 1.8 % (0.0-6.0); HEMATOCRIT 37 % (33-45); HEMOGLOBIN 11.2 g/dL (11.5-14.8); LYMPHOCYTES # (AUTO) 1.2 K/uL (0.8-4.8); MEAN CORPUSCULAR HGB CONC 30 g/dl (31.0-36.0); MEAN CORPUSCULAR VOLUME 66 fL (82-100); MONOCYTES % (AUTO) 10.3 % (2.0-12.0); NEUTROPHILS # (AUTO) 7.6 K/uL (1.8-8.9); NEUTROPHILS % (AUTO) 75.3 % (43.0-81.0); PLATELET COUNT (AUTO) 353 K/uL (150-450); RED BLOOD CELL COUNT(AUTO) 5.56 MIL/uL (4.0-5.2); WHITE BLOOD COUNT (AUTO) 10.1 K/uL (4.3-11.0)
[2021-11-15 11:15] LABS: MAGNESIUM 2.3 mg/dL (1.8-2.4)
[2021-11-15 11:22] LABS: ALANINE AMINOTRANSFERASE 14 U/L (12-78); ALBUMIN 3.1 g/dL (3.4-5.0); ALKALINE PHOSPHATASE 94 U/L (46-116); ASPARTATE AMINOTRANSFERASE 16 U/L (15-37); BILIRUBIN,DIRECT 0.1 mg/dL (0.0-0.2); BILIRUBIN,TOTAL 0.3 mg/dL (0.2-1.0); CALCIUM, SERUM 9.3 mg/dL (8.5-10.1); CARBON DIOXIDE 24 mmol/L (21-32); CHLORIDE 109 mmol/L (98-107); CREATININE 0.9 mg/dL (0.6-1.3); GLUCOSE 119 mg/dL (74-106); POTASSIUM 4.2 mmol/L (3.5-5.1); SODIUM SERUM 144 mmol/L (136-145); TOTAL PROTEIN, SERUM 6.4 g/dL (6.4-8.2); UREA NITROGEN, BLOOD 33 mg/dL (7-18)
--- NOTE | 2021-11-15 11:49 | NUR ---
URINE COLLECTED AND SENT TO LAB
[2021-11-15] MEDS ORDERED: ASPIRIN 325 MG TABLET PO ONE (12:00)
--- NOTE | 2021-11-15 12:55 | NUR ---
COVID SWAB DONE AND SENT TO LAB
[2021-11-15] MEDS ORDERED: PROP20TA19 PO (13:09)
[2021-11-15] MEDS ORDERED: ASPIRIN EC 325 MG TABLET.DR PO ONE (13:11)
[2021-11-15 13:14] LABS: BILIRUBIN,URINE NEGATIVE (NEGATIVE); COLOR,URINE YELLOW (YELLOW); LEUKOCYTE ESTERASE ,URINE NEGATIVE (NEGATIVE); NITRITE, URINE NEGATIVE (NEGATIVE); PROTEIN,URINE NEGATIVE (NEGATIVE); UGLUCOSE NEGATIVE (NEGATIVE); UROBILINOGEN,URINE 0.2 EU/dL (0.2)
[2021-11-15 14:07] LABS: BACTERIA,URINE FEW /HPF (None Seen); SQUAMOUS EPITHELIAL CELL,UR FEW /HPF (None Seen); WBC,URINE 0-2 /HPF (0-3)
--- NOTE | 2021-11-15 15:11 | NUR ---
CALLED DR. BILLS AND FAXED EKG PER ER REQUEST. TEL [phone] FAX [phone]
--- NOTE | 2021-11-15 15:30 | NUR ---
DR. DAILEY SPEAKING WITH DR. MCKEON ABOUT TRANSFER
--- NOTE | 2021-11-15 17:44 | NUR ---
JAMSHID FROM [facility] CALLED [phone] [facility] TO [phone] PT GOING TO [facility].
--- NOTE | 2021-11-15 18:11 | NUR ---
CALL FROM [facility], DR CANELA WANTS SPEAK TO DR HUTCHISON
--- NOTE | 2021-11-15 20:21 | NUR ---
S/W JAMSHID [facility] #[phone] SHE IS ARRANGING [place] AND WILL RETURN CALL ONCE SHE HAS ETA
--- NOTE | 2021-11-15 20:26 | NUR ---
S/W JAMSHID FROM [facility]. PT GOING TO [facility] ROOM 1402-02, FOR REPORT CALL [phone] ETA 11PM [facility]
--- NOTE | 2021-11-15 20:55 | NUR ---
REPORT GIVEN TO NORM GONZALEZ FOR HERNANDEZ
--- NOTE | 2021-11-15 21:45 | NUR ---
PT RESTING COMFORTABLY IN BED, PROVIDED HER WITH JUICE
--- NOTE | 2021-11-16 01:57 | NUR ---
CALLED [facility]. NEW ETA [phone]
--- NOTE | 2021-11-16 06:03 | NUR ---
S/W SEAN C/M [facility] , SHE WILL FOLLOW UP WITH [facility] IN REGARDS TO [facility] MAN TIME
--- NOTE | 2021-11-16 06:50 | NUR ---
S/Claudia ESTRADA , SHE WILL REACH OUT TO OTHER APS COMPANY TO ARRANGE TRANSPORTATION
--- NOTE | 2021-11-16 08:51 | NUR ---
CALLED JAMSHID [facility] #[phone] TO CALL US BACK ABOUT TRANSPORT OR PT STAYING HERE.
--- NOTE | 2021-11-16 09:01 | NUR ---
[facility] ETA CHANGED TO 1000 PER THELMA FROM [facility].
[2021-11-16] MEDS ORDERED: ACETAMINOPHEN 325 MG TABLET PO ONE (09:30)
[2021-11-16] MEDS ORDERED: ACETAMINOPHEN 325 MG TABLET ONE (10:05)
[2021-11-16 10:10] VITALS: BP 153/52
--- NOTE | 2021-11-16 10:15 | NUR ---
PICKED UP IN STABLE CONDITION
== END 2021-11-16 11:08 | disposition short-term general hospital (02) ==
LOC: ER 09:03
DX: R53.1 Weakness (principal); I48.91 Unspecified atrial fibrillation; R77.8 Other specified abnormalities of plasma proteins; M06.9 Rheumatoid arthritis, unspecified; I25.10 Atherosclerotic heart disease of native coronary artery without angina pectoris; Z79.899 Other long term (current) drug therapy; I11.9 Hypertensive heart disease without heart failure
CPT/HCPCS: 36415; 71045; 80048; 80076; 81001; 82550; 83605; 83735; 84484; 85025; 85730; 86850; 87040 ×2; 87081; 87426; 93005; 99285; A6403; C9803; J7120 ×2

== ENCOUNTER 2022-03-14 20:13 | Emergency (ER) | payer OTHER ==
[~2022-03-14] VITALS: Ht 157.5 cm; Wt 63.5 kg
[~2022-03-14 20:13] MED LIST changes: -METO25TA20 PO; -OLME20TA13 PO; +PROP20TA19 PO
--- NOTE | 2022-03-14 20:40 | NUR ---
TO ER BED 11. BIBRA 839 FROM HOME TO R/O SBO PER EMS. +ABD DISTENSTION AND MILD PAIN. LAST BM THIS AM. PT IS ALERT AND ORIENTED. BREATHING IS EVEN AND NONLABORED. CONNECTED TO MONITOR. AWAITING MD BAR
[2022-03-14] MEDS ORDERED: IV NS 0.9% 1,000 ML BAG IV ONE (21:00)
[2022-03-14] MEDS ORDERED: ONDANSETRON HCL/PF 4 MG/2 ML VIAL IVP ONE (21:00)
--- NOTE | 2022-03-14 21:09 | NUR ---
LIFE COACH AT PT'S BEDSIDE
--- NOTE | 2022-03-14 21:20 | NUR ---
IV LINE ESTABLISHED, LHAND 20G
[2022-03-14] MEDS ORDERED: ONDANSETRON HCL/PF 4 MG/2 ML VIAL ONE (21:28)
[2022-03-14] MEDS ORDERED: MORPHINE SULFATE INJ 4 MG/ML DISP.SYRIN ONE (21:29)
[2022-03-14] MEDS ORDERED: MORPHINE SULFATE INJ 2 MG/ML DISP.SYRIN IV ONE (21:30)
[2022-03-14 21:43] LABS: BASOPHILS % (AUTO) 0.6 % (0.0-2.0); EOSINOPHILS % (AUTO) 3.2 % (0.0-6.0); HEMATOCRIT 37 % (33-45); HEMOGLOBIN 11.3 g/dL (11.5-14.8); LYMPHOCYTES # (AUTO) 1.4 K/uL (0.8-4.8); LYMPHOCYTES % (AUTO) 20.6 % (20.0-44.0); MEAN CORPUSCULAR HGB CONC 31 g/dl (31.0-36.0); MEAN CORPUSCULAR VOLUME 71 fL (82-100); MONOCYTES # (AUTO) 0.5 K/uL (0.1-1.30); MONOCYTES % (AUTO) 7.3 % (2.0-12.0); NEUTROPHILS # (AUTO) 4.8 K/uL (1.8-8.9); NEUTROPHILS % (AUTO) 68.3 % (43.0-81.0); PLATELET COUNT (AUTO) 312 K/uL (150-450); RED BLOOD CELL COUNT(AUTO) 5.17 MIL/uL (4.0-5.2)
[2022-03-14] MEDS ORDERED: IV NS 0.9% 250 ML IV ONE (22:02)
[2022-03-14] MEDS ORDERED: IOHEXOL-350 100 ML VIAL IV ONE (22:02)
[2022-03-14 22:06] LABS: CALCIUM, SERUM 10.9 mg/dL (8.5-10.1); CARBON DIOXIDE 27 mmol/L (21-32); CHLORIDE 106 mmol/L (98-107); CREATININE 1.1 mg/dL (0.6-1.3); GLUCOSE 102 mg/dL (74-106); POTASSIUM 4.2 mmol/L (3.5-5.1); SODIUM SERUM 140 mmol/L (136-145); UREA NITROGEN, BLOOD 26 mg/dL (7-18)
[2022-03-14 22:11] LABS: ALANINE AMINOTRANSFERASE 17 U/L (12-78); ALBUMIN 3.3 g/dL (3.4-5.0); ALKALINE PHOSPHATASE 77 U/L (46-116); ASPARTATE AMINOTRANSFERASE 16 U/L (15-37); BILIRUBIN,DIRECT 0.1 mg/dL (0.0-0.2); BILIRUBIN,TOTAL 0.4 mg/dL (0.2-1.0); TOTAL PROTEIN, SERUM 7.1 g/dL (6.4-8.2)
[2022-03-15] VITALS: BP 130/64
--- NOTE | 2022-03-15 00:26 | NUR ---
[facility] CALLED FOR BLS BACK TO HOME PER ALFONSO ETA 60 MIN
--- NOTE | 2022-03-15 01:39 | NUR ---
[facility] ARRIVED FOR TRANSPORTATION, REPORT GIVEN
[2022-03-15 02:28] LABS: BASOPHILS % (MANUAL) 0 % (0.0-2.0); EOSINOPHILS % (MANUAL) 2 % (0-4); LYMPHOCYTES % (MANUAL) 20 % (16-48); MONOCYTES % (MANUAL) 6 % (0-11.0); NEUTROPHILS % (MANUAL) 72 (42-76)
[2022-03-15 04:43] LABS: LIPASE 64 U/L (73-393)
== END 2022-03-15 02:10 | disposition home or self-care (01) ==
LOC: ER 20:24 → EDBD 20:24 → ER 03-15 02:10
DX: K56.41 Fecal impaction (principal); N32.0 Bladder-neck obstruction; I10 Essential (primary) hypertension; I48.91 Unspecified atrial fibrillation; M06.9 Rheumatoid arthritis, unspecified; Z98.890 Other specified postprocedural states; Z79.899 Other long term (current) drug therapy
CPT/HCPCS: 99285; 74177; 96374; 96361; 96375; 85025; 80048; 83605; 83690; 80076; 36415; 85007; J2270; J2405; J7030; J7050; Q9967